=== PATIENT | female | born 1970 | race Caucasian/White ===

== ENCOUNTER → 2020-10-28 | Outpatient (CLI) | payer OTHER ==
[~2020-10-28] MED LIST: AMOXICILLIN500 MG PO; FIORICET TAB1 EA PO; RESTORIL15 MG PO; TORADOL 10 MG T10 MG PO; ZOLOFT50 MG PO
== END ==
LOC: US 08:40
DX: R94.5 Abnormal results of liver function studies (principal); K76.0 Fatty (change of) liver, not elsewhere classified
CPT/HCPCS: 76705

== ENCOUNTER → 2020-11-15 | Outpatient (CLI) | payer OTHER ==
[2020-11-17 07:09] LABS: ALPHA-1-ANTITRYPSIN, SERUM 106 mg/dL (101-187); THYROXINE (T4) 7.5 ug/dL (4.5-12.0); TRIIODOTHYRONINE (T3) 117 ng/dL (71-180)
[2020-11-18 13:11] LABS: MITOCHONDRIAL (M2) ANTIBODY <20.0 Units (0.0-20.0)
== END ==
LOC: LAB 17:18
PROVIDERS: Internal Medicine Gastroenterology
DX: R94.5 Abnormal results of liver function studies (principal)
CPT/HCPCS: 80076; 82103; 82728; 83540; 83550; 84436; 84443; 84480; 86038

== ENCOUNTER 2021-01-16 11:39 | Emergency (ER) | payer OTHER ==
[~2021-01-16] VITALS: Ht 170.2 cm; Wt 72.6 kg
[2021-01-16] MEDS ORDERED: AMOXICILLIN875 MG PO (12:57)
[2021-01-16] MEDS ORDERED: ONDANSETRON ODT4 MG SL (12:57)
== END 2021-01-16 14:41 | disposition home or self-care (01) ==
LOC: ER1 11:39
DX: U07.1 COVID-19 (principal); Z23 Encounter for immunization; H66.91 Otitis media, unspecified, right ear; Z87.442 Personal history of urinary calculi
CPT/HCPCS: 99283; M0243

== ENCOUNTER 2021-02-24 14:22 | Emergency (ER) | payer OTHER ==
[~2021-02-24 14:22] MED LIST changes: +AMOXICILLIN875 MG PO; +ONDANSETRON ODT4 MG SL
[2021-02-24 20:28] LABS: HEMOGLOBIN 13.3 gm/dl (12.3-15.3); RED BLOOD COUNT 4.52 M/UL (4.00-5.10); WHITE BLOOD COUNT 6.2 K/UL (4.5-11.0)
[2021-02-24 21:05] LABS: BUN/CREATININE RATIO 14 (0-10)
[2021-02-25] MEDS ORDERED: FLOMAX 0.4 MG0.4 MG PO (03:13)
[2021-02-25] MEDS ORDERED: PERCOCET 5-3251 EACH PO (03:13)
[2021-02-25] MEDS ORDERED: ZOFRAN ODT 4 MG4 MG PO (03:13)
== END 2021-02-25 04:35 | disposition home or self-care (01) ==
LOC: ER1 14:22
PROVIDERS: Physician Assistant
DX: R20.2 Paresthesia of skin (principal); R03.0 Elevated blood-pressure reading, without diagnosis of hypertension; N13.2 Hydronephrosis with renal and ureteral calculous obstruction; Z87.442 Personal history of urinary calculi
CPT/HCPCS: 36415; 70450; 80048; 81001; 82550; 82553; 84484; 85025; 93005; 96372; 99284; J1885